=== PATIENT | female | born 1970 | race Caucasian/White ===

== ENCOUNTER 2016-04-11 00:13 | Observation (INO) | payer OTHER ==
[~2016-04-11] VITALS: Ht 188 cm; Wt 125.0 kg
[2016-04-11 00:19] VITALS: BP 169/83; PULSE 90; RESP 18; TEMP 98.1; O2SAT 99
--- NOTE | 2016-04-11 01:03 | RADRPT ---
EXAM DATE/TIME: 04/11/2016 00:29 [facility] COMPARISON: No previous studies available for comparison. INDICATIONS : Left foot pain. MEDICAL HISTORY : None. SURGICAL HISTORY : None. ENCOUNTER: Initial ACUITY: 1 day PAIN SCORE: 7/10 LOCATION: Left ankle. FINDINGS: Two view examination of the left foot demonstrates no soft tissue swelling, dislocation, or fracture. The calcaneus is intact. Bony mineralization is normal. CONCLUSION: Unremarkable limited examination of the left foot. Teo Virgen MD on April 11, 2016 at 1:02 Board Certified Radiologist. This report was verified electronically.
--- NOTE | 2016-04-11 01:03 | RADRPT ---
EXAM DATE/TIME: 04/11/2016 00:24 [facility] COMPARISON: No previous studies available for comparison. INDICATIONS : Left ankle pain. MEDICAL HISTORY : None. SURGICAL HISTORY : None. ENCOUNTER: Initial ACUITY: 1 day PAIN SCORE: 8/10 LOCATION: Left ankle FINDINGS: There is a spiral fracture of the distal left fibula extending from the distal tibiofibular joint and about 10 cm of the fibula with roughly 1/2 shaft width posterior displacement of the distal fragment . The distal tibia is intact however there is widening of the medial ankle mortise potentially indica tive of ligamentous disruption. The hindfoot is grossly intact. CONCLUSION: Spiral fracture of the distal fibula. Medial mortise widening Teo Virgen MD on April 11, 2016 at 0:59 Board Certified Radiologist. This report was verified electronically.
--- NOTE | 2016-04-11 01:14 | PD ---
HPI Chief Complaint: Injury Time Seen by Provider: 01:01 Travel History International Travel<30 days: No Contact w/Intl Traveler<30days: No Traveled to known affect area: No History of Present Illness HPI 45-year-old female presents to the ER today because she states that she fell in the shower, has pain in her left ankle. She denies any other issues or injuries. She denies any head injury or loss consciousness. Modifying Factors: None Associated Signs & Symptoms: Fall, left ankle injury Risk Factors: None PFSH Past Medical History Medical History: Denies Significant Hx Tetanus Vaccination: > 5 Years Influenza Vaccination: No ?: Not LMP: 2 WEEKS AGO Past Surgical History Neurologic Surgery: Yes (C2 C3 REPAIR) Social History Alcohol Use: No Tobacco Use: No Substance Use: No Allergies-Medications (Allergen,Severity, Reaction): Coded Allergies: Codeine (Verified Allergy, Unknown, 04/11/16) Review of Systems Except as stated in HPI: all other systems reviewed are Neg Physical Exam Narrative GENERAL: Well-nourished, well-developed middle age white female patient in no acute distress. SKIN: Warm and dry. HEAD: Normocephalic. EYES: No scleral icterus. No injection or drainage. NECK: Supple, trachea midline. CARDIOVASCULAR: Regular rate and rhythm without murmurs, gallops, or rubs. RESPIRATORY: Breath sounds equal bilaterally. No accessory muscle use. GASTROINTESTINAL: Abdomen soft, non-tender, nondistended. MUSCULOSKELETAL: No cyanosis, or edema. BACK: Nontender without obvious deformity. No CVA tenderness. Left ankle: There is notable edema and tenderness to palpation of the left lateral malleolar area. No knee tenderness. Neurovascularly intact. Data Data Last Documented VS Vital Signs Date Time Temp Pulse Resp B/P Pulse Ox O2 Delivery O2 Flow Rate FiO2 04/11/16 00:19 98.1 90 18 169/83 99 Orders Ankle, Complete ([id number]) (04/11/16 00:25) Foot, Limited (2vws) (04/11/16 00:25) Splint Or Brace Apply/Monitor (04/11/16 01:08) Consult Orthopedic (04/11/16 ) Complete Blood Count With Diff (04/11/16 01:31) Basic Metabolic Panel (Bmp) (04/11/16 01:31) Fiberglass Short Leg Splint Ad (04/11/16 ) Fiberglass Sugartong Sp Ad Sl (04/11/16 ) Admit Order (Ed Use Only) (04/11/16 02:31) Labs Laboratory Tests Test 04/11/16 01:35 White Blood Count 18.7 TH/MM3 Red Blood Count 4.45 MIL/MM3 Hemoglobin 13.2 GM/DL Hematocrit 37.9 % Mean Corpuscular Volume 85.2 FL Mean Corpuscular Hemoglobin 29.7 PG Mean Corpuscular Hemoglobin 34.8 % Concent Red Cell Distribution Width 12.8 % Platelet Count 270 TH/MM3 Mean Platelet Volume 8.5 FL Neutrophils (%) (Auto) 82.9 % Lymphocytes (%) (Auto) 10.2 % Monocytes (%) (Auto) 6.0 % Eosinophils (%) (Auto) 0.6 % Basophils (%) (Auto) 0.3 % Neutrophils # (Auto) 15.6 TH/MM3 Lymphocytes # (Auto) 1.9 TH/MM3 Monocytes # (Auto) 1.1 TH/MM3 Eosinophils # (Auto) 0.1 TH/MM3 Basophils # (Auto) 0.1 TH/MM3 CBC Comment DIFF FINAL Differential Comment Sodium Level 138 MEQ/L Potassium Level 4.0 MEQ/L Chloride Level 104 MEQ/L Carbon Dioxide Level 25.0 MEQ/L Anion Gap 9 MEQ/L Blood Urea Nitrogen 12 MG/DL Creatinine 0.84 MG/DL Estimat Glomerular Filtration 74 ML/MIN Rate Random Glucose 130 MG/DL Calcium Level 8.8 MG/DL MDM Medical Decision Making Medical Screen Exam Complete: Yes Emergency Medical Condition: Yes Medical Record Reviewed: Yes Interpretation(s) Last 24 hours Impressions Foot X-Ray 04/11/165 Signed Impressions: Service Date/Time: Monday, April 11, 2016 00:29 - CONCLUSION: Unremarkable limited examination of the left foot. Teo Viregn MD Ankle X-Ray 04/11/16 0025 Signed Impressions: Service Date/Time: Monday, April 11, 2016 00:24 - CONCLUSION: Spiral fracture of the distal fibula. Medial mortise widening Teo Virgen MD Differential Diagnosis Left ankle injuryfractures versus sprain Narrative Course X-ray shows obvious left distal fibular fracture with a widened ankle mortise. Case was discussed with Dr. Perkins who would like the patient to be admitted for surgery with Dr. Isabel. I have talked to Dr. bill regarding the admission and he states that considering the patient is a fairly uncomplicated patient with no history of past medical issues, he would suggest admission to orthopedic service for this case instead, he states that uncomplicated cases such as these usually admitted to orthopedics. I have attempted to call Dr. Perkins again several times but wasn't successful. At this point, case is admitted to orthopedic service. Diagnosis Primary Impression: Closed fibular fracture Admitting Information Admitting Physician Requests: Admit Jenniffer Geiger MD Apr 11, 2016 01:14
[2016-04-11 01:51] LABS: AUTOMATED NEUTROPHIL # 15.6 TH/MM3 (1.8-7.7); BASOPHIL # 0.1 TH/MM3 (0-0.2); BASOPHIL % 0.3 % (0.0-2.0); EOSINOPHIL # 0.1 TH/MM3 (0-0.4); EOSINOPHIL % 0.6 % (0.0-4.0); HEMATOCRIT 37.9 % (35.0-46.0); HEMO FLAGS DIFF FINAL; LYMPH % 10.2 % (9.0-44.0); LYMPHOCYTE # 1.9 TH/MM3 (1.0-4.8); MEAN CELL VOLUME 85.2 FL (80.0-100.0); MEAN CORPUSCULAR HEMOGLOBIN 29.7 PG (27.0-34.0); MEAN CORPUSCULAR HGB CONC 34.8 % (32.0-36.0); NEUT % 82.9 % (16.0-70.0); PLATELET COUNT 270 TH/MM3 (150-450); RED BLOOD COUNT 4.45 MIL/MM3 (4.00-5.30); RED CELL DISTRIBUTION WIDTH 12.8 % (11.6-17.2); WHITE BLOOD COUNT 18.7 TH/MM3 (4.0-11.0)
[2016-04-11 03:00] VITALS: BP_SYST 116; BP_SYST 134; BP_DIAS 68; PULSE 77; PULSE 87; RESP 16; O2SAT 96; O2SAT 99
[2016-04-11] MEDS ORDERED: ONDANSETRON HCL 4 MG/2 ML VIAL IV PUSH ONE ×2 (03:30→12:00)
[2016-04-11] MEDS ORDERED: MORPHINE SULFATE 4 MG/ML INJ IV PUSH ONE ×2 (03:30→07:45)
[2016-04-11 07:48] VITALS: BP 136/70; PULSE 92; RESP 16; TEMP 98.7; O2SAT 96
[2016-04-11] MEDS ORDERED: MIDAZOLAM HCL 2 MG/2 ML VIAL ONE (09:09)
[2016-04-11] MEDS ORDERED: ACETAMINOPHEN 1000 MG/100 ML VIAL IV ONE (09:09)
[2016-04-11] MEDS ORDERED: METOCLOPRAMIDE HCL 10 MG/2 ML VIAL ONE (09:10)
[2016-04-11] MEDS ORDERED: fentaNYL CITRATE 250 MCG/5 ML AMP ONE (09:10)
[2016-04-11] MEDS ORDERED: DEXAMETHASONE SOD PHOS 4 MG/ML VIAL ONE (09:10)
--- NOTE | 2016-04-11 09:29 | MH ---
cc: ELIZABETH CARTWRIGHT DATE OF ADMISSION: 04/11/2016 REASON FOR ADMISSION Left ankle fracture. HISTORY OF PRESENT ILLNESS Crys is a 45-year-old female who was in the shower. The floor was wet. She slipped and fell. She twisted her ankle. She had immediate left ankle pain. She was unable to stand or ambulate. She presented to the emergency room where x-rays revealed a left ankle fracture. She is currently awake and alert in the emergency department. Her only complaint is her left ankle. She denies any dizziness, syncope or loss of consciousness. Pain is worse with any movement or weightbearing of the ankle. PAST MEDICAL HISTORY ILLNESSES Cervical spine surgery. Degenerative disc disease. ALLERGIES CODEINE. MEDICATIONS Please see EMR for complete list of inpatient medications. This was reviewed. SOCIAL HISTORY The patient denies alcohol, tobacco or drug use. FAMILY HISTORY Family history is noncontributory. REVIEW OF SYSTEMS The patient denies headache, visual changes, neck pain, chest pain, shortness of breath, abdominal pain, nausea, vomiting, recent weight loss or numbness or tingling of the extremities. She complains of left ankle pain. She has chronic neck and back pain. She sees Dr. Andres Monahan regarding her spine. PHYSICAL EXAMINATION GENERAL: The patient is a well-developed, well-nourished 45-year-old female in no acute distress. She is awake and alert. She is alert and oriented x3. VITAL SIGNS: Temperature 98.1, pulse 87, respirations 16, blood pressure 116/60, O2 sats 99% on room air. HEAD: The patient is normocephalic. Pupils are equal. NECK: Soft, nontender. Trachea is midline. ABDOMEN: Soft, nontender, nondistended. EXTREMITIES: Examination of bilateral upper extremities reveals no significant pain with shoulder, elbow or wrist motion. She has intact sensation in radial, ulnar, median nerve distribution bilaterally. She has +5 employment trainer strength bilaterally. Radial pulses are palpable. Examination of right leg reveals no pain with hip, knee or ankle motion. Sensation is intact. Skin is intact. The dorsalis pedis pulse is palpable. Examination of left leg reveals no pain with hip or knee motion. She is diffusely tender around the ankle. There is mild swelling present. Skin is intact. Sensation is intact in the left foot. X-RAYS X-rays of left ankle were reviewed. X-rays revealed displaced left fibula fracture. There is widening of the medial clear space. IMPRESSION Displaced left ankle fracture. PLAN Treatment options were discussed with the patient. At this point I would recommend open reduction, internal fixation left ankle. Risks of surgery include bleeding, infection, injuries to arteries, nerves and blood vessels, ankle stiffness, loss of motion as well as medical complications associated with anesthesia. All questions were answered. I will plan on surgery today. All questions were answered. A mid-level provider in my office, nurse practitioner or PA, may see this patient on a follow-up basis and continue to implement the objective of this plan including: Starting or adjusting medications, injections of muscle, tendon, bursa or joints, cast application, orthotic or brace application, physical therapy, further radiographic studies including x-ray, MRI, CT, ultrasounds or bone scan, vascular studies, neurologic studies, or other specialist consultations, and proceeding with surgical management as appropriate. MD JAE Alonso/CHRISTIANO /7:10 AM /9:11 AM BAL[facility]ER
[2016-04-11] MEDS ORDERED: BUPIVACAINE/EPINEPHRINE 0.25% PF 30 ML VIAL ONE ×2 (09:33→14:08)
[2016-04-11] MEDS ORDERED: GENTAMICIN SULFATE 80 MG/2 ML VIAL IRRIGATION ONE (09:47)
[2016-04-11] MEDS ORDERED: HYDR-3288 PO (10:13)
[2016-04-11] MEDS ORDERED: WALKER/ADULT/FO1 MIS (10:15)
--- NOTE | 2016-04-11 10:35 | PD.OP ---
cc: Josh Isabel MD Operative Report Date of Surgery: Apr 11, 2016 Preoperative Diagnosis: Displaced left ankle fracture Postoperative Diagnosis: Displaced left fibular fracture, syndesmosis disruption Procedure: Open reduction internal fixation left distal fibula, open reduction internal fixation left ankle syndesmosis Surgeon: Josh Isabel Queen Producer(s): YAN Jenkins PA-C The surgical procedure was assisted by my physician chef's assistant. My P.A. presence was necessary throughout this case for the manipulation and positioning of the surgical extremity. My P.A. was assisting me throughout the duration of this procedure. The skill set of a physician chef's assistant was medically necessary to complete this procedure. During the surgical case the instructor adjunct surgical technician was working at the back table and the physician chef's assistant was directly assisting me. Operation and Findings: Patient was seen and evaluated preoperatively and found to have a displaced ankle fracture. Informed consent was obtained after a detailed discussion of risk and benefits of surgery. The operative site was marked. Patient was brought to the OR, placed on the OR table, and given IV sedation and general endotracheal anesthesia. IV antibiotics were given preoperatively. A timeout procedure was performed. The left leg was prepped with alcohol followed by Hibiclens and draped in the usual sterile fashion. Attention was turned towards the distal fibula. A 6-inch incision was made over the distal fibula. The fracture extended up towards the fibular shaft. The subcutaneous tissue was dissected with Bovie. Patient was noted to have a large superficial peroneal nerve. This was protected throughout the procedure. The fracture site was visualized. The fracture site was cleaned with curets. The fracture was now reduced. The fracture keyed into anatomic alignment. K- wires were used to h old provisional fixation. Multiple 2.7 cortical lag screws were used to compress fracture. A Synthes metaphyseal plate was selected. The plate was provisionally held to bone with K-wires. 3.5 cortical screws were used to compress the plate to bone. Multiple cortical screws were placed above and below the fracture. Next, attention was turned to the syndesmosis. The syndesmosis was stressed. There was widening of the syndesmosis with external rotation of the ankle. The syndesmosis was now held in a reduced position with the ankle in neutral position. Two Synthes 4.0 cortical screws were now placed through the fibula plate into the tibia. Fluoroscopy confirmed appropriate screw placement with well-aligned syndesmosis. Incisions were thoroughly irrigated. The subcutaneous tissue was closed with 3-0 PDS and the skin was closed with 3-0 nylon. Sterile dressings were applied. The patient was transferred to Recovery in stable condition. Josh Isabel MD Apr 11, 2016 10:35
[2016-04-11] MEDS ORDERED: Post-op Orders (for Pharmacy) MISC XX ONE (10:45)
[2016-04-11] MEDS ORDERED: ONDANSETRON HCL 4 MG/2 ML VIAL IVP PRN (10:45)
[2016-04-11] MEDS ORDERED: ceFAZolin 2 GM PREMIX 50 ML IV SCH (10:45)
[2016-04-11] MEDS ORDERED: MORPHINE SULFATE 4 MG/ML INJ IV PUSH PRN (10:45)
[2016-04-11] MEDS ORDERED: ACETAMINOPHEN/HYDROcodone 325 MG/7.5 MG TAB PO PRN (10:45)
--- NOTE | 2016-04-11 10:48 | RADRPT ---
EXAM DATE/TIME: 04/11/2016 10:16 [facility] COMPARISON: No previous studies available for comparison. INDICATIONS: Post-op ORIF left ankle fracture. MEDICAL HISTORY: None. SURGICAL HISTORY: None. ENCOUNTER: Initial ACUITY: 1 day PAIN SCORE: Non-responsive. LOCATION: Left ankle. FINDINGS: Plate with screws is seen bridging the fracture of the fibula. Alignment is anatomic in the AP and l ateral projection. CONCLUSION: Anatomic alignment. Arslan Kat MD FACR on April 11, 2016 at 10:42 Board Certified Radiologist. This report was verified electronically.
[2016-04-11] MEDS ORDERED: DO NOT ADM ANY ANTICOAGULANT DRUGS XX PRN (11:00)
[2016-04-11] MEDS ORDERED: *MEPERIDINE 25 MG INJ VIAL PERIprocedural Use ONLY ONE (11:15)
[2016-04-11] MEDS ORDERED: *morphine SULFATE 8 MG/ML PERIprocedure ONLY ONE ×3 (11:24→12:11)
[2016-04-11] MEDS ORDERED: PROPOFOL 200 MG/20 ML AMP IV ONE (12:00)
[2016-04-11] MEDS ORDERED: NORMOSOL R INJ 1,000 ML IV ONE (12:00)
[2016-04-11] MEDS: ACETAMINOPHEN/HYDROcodone 325 MG/7.5 MG TAB PO PRN ×2 (13:45→15:00)
[2016-04-11 13:49] VITALS: BP 153/88; PULSE 83; TEMP 97; O2SAT 96
[2016-04-11 14:45] VITALS: RESP 18
== END 2016-04-11 10:31 | disposition home or self-care (01) ==
LOC: NEPC 00:13 → NEDA 02:32 → HPAC 08:45
PROVIDERS: ADMIT Orthopaedic Surgery Orthopaedic Trauma; ATTEND Orthopaedic Surgery Orthopaedic Trauma
DX: S82.832A Other fracture of upper and lower end of left fibula, initial encounter for closed fracture (principal); S93.432A Sprain of tibiofibular ligament of left ankle, initial encounter; W01.0XXA Fall on same level from slipping, tripping and stumbling without subsequent striking against object, initial encounter
CPT/HCPCS: 01480; 27792; 27829; 29515; 73600; 73610; 73620; 76000; 80048; 85025; 97163; 99284; C1713; G0378; G8987; G8988; J0131; J1100; J1580; J2175; J2250; J2270; J2405; J2765; J3010

== ENCOUNTER 2017-02-22 21:54 | Observation (INO) | payer OTHER ==
[~2017-02-22] VITALS: Ht 189.2 cm; Wt 149.1 kg
[~2017-02-22 21:54] MED LIST: HYDR-3288 PO; WALKER/ADULT/FO1 MIS
[2017-02-22 21:59] VITALS: BP 140/101; PULSE 76; RESP 20; TEMP 97.7; O2SAT 100
[2017-02-22 22:07] VITALS: BP 140/101; PULSE 76; O2SAT 100
[2017-02-22] MEDS ORDERED: SODIUM CHLOR 0.9% 1000 ML INJ 1,000 ML IV ONE (22:15)
[2017-02-22] MEDS ORDERED: ASPIRIN 81 MG CHEW TAB PO ONE (22:15)
[2017-02-22] MEDS ORDERED: SODIUM CHLORIDE 0.9% FLUSH 10 ML FLUSH IVF PRN (22:15)
--- NOTE | 2017-02-22 22:17 | PD ---
HPI Chief Complaint: Respiratory Symptoms Time Seen by Provider: 22:07 Travel History International Travel<30 days: No Contact w/Intl Traveler<30days: No Traveled to known affect area: No History of Present Illness HPI Patient is a 46-year-old female who presents to emergency room with complaints of shortness of breath. Patient reports that last night around 2 AM, she woke up from her sleep with shortness of breath and chest pain. She reports that chest pain is substernal in nature and feels a "pressure to my chest". Patient reports that she felt as if she cannot catch her breath, reports mild relief while sitting up. Patient reports that symptoms have been intermittent all day , patient reports that she has not been able to take a deep breath, reports that she has been having intermittent bouts of "pressure to my chest" last for a few minutes and then resolves on its own. Patient with no history of hypertension, diabetes, coronary artery disease, no family history of early heart disease. Patient also denies history of PE or DVT. Patient is a nonsmoker, reports that she has never had the symptoms in the past. Patient reports that she is not on any control pills, denies any recent travels or trips. Overall, she is healthy does not take any medications. PFSH Past Medical History Medical History: Denies Significant Hx Hx Anticoagulant Therapy: No ?: Not LMP: A YEAR AGO Past Surgical History Neurologic Surgery: Yes (C2 C3 REPAIR) Family History Family History: Negative Social History Alcohol Use: No Tobacco Use: No Substance Use: No Allergies-Medications (Allergen,Severity, Reaction): Coded Allergies: codeine (Unverified Allergy, Unknown, 02/22/17) Reported Meds & Prescriptions Reported Meds & Active Scripts Active Walker/Adult/Folding (Device) 1 Mis Mis 1 Ea .ROUTE DIRECTED [place] (Hydrocodone-Acetaminophen) 7.5-325 mg Tab 1 Tab PO Q4H PRN Review of Systems General / Constitutional: No: Fever Eyes: No: Visual changes HENT: No: Headaches Cardiovascular: Positive: Chest Pain or Discomfort, No: Palpitations, Irregular Rhythm, Tachycardia, Diaphoresis Respiratory: Positive: Shortness of Breath, No: Wheezing Gastrointestinal: No: Abdominal Pain Genitourinary: No: Dysuria Musculoskeletal: No: Pain Skin: No Rash Neurologic: No: Weakness Psychiatric: No: Depression Endocrine: No: Polydipsia Hematologic/Lymphatic: No: Easy Bruising Physical Exam Narrative GENERAL: Moderate distress SKIN: Focused skin assessment warm/dry. HEAD: Atraumatic. Normocephalic. EYES: Pupils equal and round. No scleral icterus. No injection or drainage. ENT: No nasal bleeding or discharge. Mucous membranes pink and moist. NECK: Trachea midline. No JVD. CARDIOVASCULAR: Regular rate and rhythm. No murmur appreciated. RESPIRATORY: No accessory muscle use. Clear to auscultation. Breath sounds equal bilaterally. GASTROINTESTINAL: Abdomen soft, non-tender, nondistended. Hepatic and splenic margins not palpable. MUSCULOSKELETAL: No obvious deformities. No clubbing. No cyanosis. No edema. NEUROLOGICAL: Awake and alert. No obvious cranial nerve deficits. Motor grossly within normal limits. Normal speech. PSYCHIATRIC: Appropriate mood and affect; insight and judgment normal. Data Data Last Documented VS Vital Signs Date Time Temp Pulse Resp B/P (MAP) Pulse Ox O2 Delivery O2 Flow Rate FiO2 02/22/17 23:44 76 16 151/80 (103) 98 Room Air 02/22/17 21:59 97.7 Orders Orders Electrocardiogram (02/22/17 ) B-Type Natriuretic Peptide (02/22/17 22:11) Ckmb (Isoenzyme) Profile (02/22/17 22:11) Complete Blood Count With Diff (02/22/17 22:11) Comprehensive Metabolic Panel (02/22/17 22:11) D-Dimer (02/22/17 22:11) Magnesium (Mg) (02/22/17 22:11) Prothrombin Time / Inr (Pt) (02/22/17 22:11) Act Partial Throm Time (Ptt) (02/22/17 22:11) Troponin I (02/22/17 22:11) Chest, Single Ap (02/22/17 22:11) Ecg Monitoring (02/22/17 22:11) Iv Access Insert/Monitor (02/22/17 22:11) Oximetry (02/22/17 22:11) Aspirin Chew (Aspirin Chew) (02/22/17 22:15) Sodium Chloride 0.9% Flush (Ns Flush) (02/22/17 22:15) Ct Pulmonary Angiogram (02/22/17 22:11) Sodium Chlor 0.9% 1000 Ml Inj (Ns 1000 M (02/22/17 22:15) Nitroglycerin Sl (Nitrostat Sl) (02/22/17 23:30) Iohexol 350 Inj (Omnipaque 350 Inj) (02/22/17 23:28) Acetaminophen (Tylenol) (02/22/17 23:45) Labs Laboratory Tests Test 02/22/17 22:30 White Blood Count 13.4 TH/MM3 Red Blood Count 4.60 MIL/MM3 Hemoglobin 13.6 GM/DL Hematocrit 39.2 % Mean Corpuscular Volume 85.2 FL Mean Corpuscular Hemoglobin 29.5 PG Mean Corpuscular Hemoglobin Concent 34.6 % Red Cell Distribution Width 11.7 % Platelet Count 295 TH/MM3 Mean Platelet Volume 8.1 FL Neutrophils (%) (Auto) 70.0 % Lymphocytes (%) (Auto) 22.8 % Monocytes (%) (Auto) 5.8 % Eosinophils (%) (Auto) 1.1 % Basophils (%) (Auto) 0.3 % Neutrophils # (Auto) 9.5 TH/MM3 Lymphocytes # (Auto) 3.0 TH/MM3 Monocytes # (Auto) 0.8 TH/MM3 Eosinophils # (Auto) 0.1 TH/MM3 Basophils # (Auto) 0.0 TH/MM3 CBC Comment DIFF FINAL Differential Comment Prothrombin Time 9.8 SEC Prothromb Time International Ratio 0.9 RATIO Activated Partial Thromboplast Time 29.2 SEC D-Dimer Quantitative (PE/DVT) 0.48 MG/L FEU Blood Urea Nitrogen 12 MG/DL Creatinine 0.86 MG/DL Random Glucose 96 MG/DL Total Protein 7.6 GM/DL Albumin 3.5 GM/DL Calcium Level 8.7 MG/DL Magnesium Level 2.0 MG/DL Alkaline Phosphatase 105 U/L Aspartate Amino Transf (AST/SGOT) 18 U/L Alanine Aminotransferase (ALT/SGPT) 28 U/L Total Bilirubin 0.2 MG/DL Sodium Level 138 MEQ/L Potassium Level 3.6 MEQ/L Chloride Level 102 MEQ/L Carbon Dioxide Level 28.4 MEQ/L Anion Gap 8 MEQ/L Estimat Glomerular Filtration Rate 71 ML/MIN Total Creatine Kinase 59 U/L Troponin I LESS THAN 0.02 NG/ML B-Type Natriuretic Peptide 10 PG/ML MDM Medical Decision Making Medical Screen Exam Complete: Yes Emergency Medical Condition: Yes Medical Record Reviewed: Yes Interpretation(s) Vital Signs Date Time Temp Pulse Resp B/P (MAP) Pulse Ox O2 Delivery O2 Flow Rate FiO2 02/22/17 22:07 78 100 Room Air 02/22/17 21:59 97.7 76 20 140/101 (114) 100 Differential Diagnosis ACS, arrhythmia, PE, pneumothorax, electrolyte abnormality Narrative Course 46-year-old female who presents to emergency with complaints of chest pain and shortness of breath which began around 2 AM in the morning and has been persistent and intermittent all day. During the course of the patients emergency department visit, the patients history, examination, and differential diagnosis were reviewed with the patient. The patient was placed on a cardiac rehab nurse with oximetry and frequent blood pressure monitoring. The patient had a 20-gauge IV access obtained and blood work sent for analysis. The patient was initially provided aspirin as well as sublingual nitroglycerin. The patients laboratory studies were reviewed and remarkable for: Laboratory Tests Test 02/22/17 22:30 White Blood Count 13.4 TH/MM3 (4.0-11.0) Red Blood Count 4.60 MIL/MM3 (4.00-5.30) Hemoglobin 13.6 GM/DL (11.6-15.3) Hematocrit 39.2 % (35.0-46.0) Mean Corpuscular Volume 85.2 FL (80.0-100.0) Mean Corpuscular Hemoglobin 29.5 PG (27.0-34.0) Mean Corpuscular Hemoglobin Concent 34.6 % (32.0-36.0) Red Cell Distribution Width 11.7 % (11.6-17.2) Platelet Count 295 TH/MM3 (150-450) Mean Platelet Volume 8.1 FL (7.0-11.0) Neutrophils (%) (Auto) 70.0 % (16.0-70.0) Lymphocytes (%) (Auto) 22.8 % (9.0-44.0) Monocytes (%) (Auto) 5.8 % (0.0-8.0) Eosinophils (%) (Auto) 1.1 % (0.0-4.0) Basophils (%) (Auto) 0.3 % (0.0-2.0) Neutrophils # (Auto) 9.5 TH/MM3 (1.8-7.7) Lymphocytes # (Auto) 3.0 TH/MM3 (1.0-4.8) Monocytes # (Auto) 0.8 TH/MM3 (0-0.9) Eosinophils # (Auto) 0.1 TH/MM3 (0-0.4) Basophils # (Auto) 0.0 TH/MM3 (0-0.2) CBC Comment DIFF FINAL Differential Comment Prothrombin Time 9.8 SEC (9.8-11.6) Prothromb Time International Ratio 0.9 RATIO Activated Partial Thromboplast Time 29.2 SEC (24.3-30.1) D-Dimer Quantitative (PE/DVT) 0.48 MG/L FEU (0.00-0.50) Blood Urea Nitrogen 12 MG/DL (7-18) Creatinine 0.86 MG/DL (0.50-1.00) Random Glucose 96 MG/DL (74-106) Total Protein 7.6 GM/DL (6.4-8.2) Albumin 3.5 GM/DL (3.4-5.0) Calcium Level 8.7 MG/DL (8.5-10.1) Magnesium Level 2.0 MG/DL (1.5-2.5) Alkaline Phosphatase 105 U/L (45-117) Aspartate Amino Transf (AST/SGOT) 18 U/L (15-37) Alanine Aminotransferase (ALT/SGPT) 28 U/L (10-53) Total Bilirubin 0.2 MG/DL (0.2-1.0) Sodium Level 138 MEQ/L (136-145) Potassium Level 3.6 MEQ/L (3.5-5.1) Chloride Level 102 MEQ/L (98-107) Carbon Dioxide Level 28.4 MEQ/L (21.0-32.0) Anion Gap 8 MEQ/L (5-15) Estimat Glomerular Filtration Rate 71 ML/MIN (>89) Total Creatine Kinase 59 U/L (26-192) Troponin I LESS THAN 0.02 NG/ML B-Type Natriuretic Peptide 10 PG/ML (0-100) Radiology studies were reviewed and remarkable for: Last Impressions Chest X-Ray 02/22/17 8172 Signed Impressions: Service Date/Time: Wednesday, February 22, 2017 22:22 - CONCLUSION: No acute cardiac pulmonary process. Nestor Lacey MD First troponin is negative, CTA is negative for PE. Plan to obs in chest pain unit for chest pain workup. Patient does have relief of chest pain after 1 sl nitro. case reviewed with Dr. Coronado who accepts pt to service Diagnosis Primary Impression: Chest pain Qualified Codes: R07.9 - Chest pain, unspecified Admitting Information Admitting Physician Requests: Maggie Lorenzo DO Feb 22, 2017 22:17
[2017-02-22 22:27] VITALS: RESP 18; O2SAT 99
[2017-02-22 22:39] VITALS: BP 136/90
[2017-02-22 22:44] LABS: AUTOMATED NEUTROPHIL # 9.5 TH/MM3 (1.8-7.7); BASOPHIL % 0.3 % (0.0-2.0); EOSINOPHIL # 0.1 TH/MM3 (0-0.4); EOSINOPHIL % 1.1 % (0.0-4.0); HEMATOCRIT 39.2 % (35.0-46.0); HEMO FLAGS DIFF FINAL; LYMPH % 22.8 % (9.0-44.0); MEAN CELL VOLUME 85.2 FL (80.0-100.0); MEAN CORPUSCULAR HEMOGLOBIN 29.5 PG (27.0-34.0); MEAN CORPUSCULAR HGB CONC 34.6 % (32.0-36.0); MONO % 5.8 % (0.0-8.0); PLATELET COUNT 295 TH/MM3 (150-450); RED CELL DISTRIBUTION WIDTH 11.7 % (11.6-17.2); WHITE BLOOD COUNT 13.4 TH/MM3 (4.0-11.0)
[2017-02-22 22:51] LABS: CHLORIDE 102 MEQ/L (98-107); POTASSIUM 3.6 MEQ/L (3.5-5.1); SODIUM (NA) 138 MEQ/L (136-145)
--- NOTE | 2017-02-22 22:51 | RADRPT ---
EXAM DATE/TIME: 02/22/2017 22:22 [facility] COMPARISON: No previous studies available for comparison. INDICATIONS : Chest pain and shortness of breath. MEDICAL HISTORY : None. SURGICAL HISTORY : None. ENCOUNTER: Initial ACUITY: 1 day PAIN SCORE: 5/10 LOCATION: Bilateral chest FINDINGS: A single view of the chest demonstrates the lungs to be symmetrically aerated without evidence of mas s, infiltrate or effusion. The cardiomediastinal contours are unremarkable. Osseous structures are intact. CONCLUSION: No acute cardiac pulmonary process. Nestor Lacey MD on February 22, 2017 at 22:49 Board Certified Radiologist. This report was verified electronically.
[2017-02-22 22:54] LABS: ANION GAP 8 MEQ/L (5-15); BICARBONATE 28.4 MEQ/L (21.0-32.0)
[2017-02-22 22:55] LABS: BLOOD UREA NITROGEN 12 MG/DL (7-18)
[2017-02-22 22:57] LABS: ALT (GPT) 28 U/L (10-53); AST (GOT) 18 U/L (15-37)
[2017-02-22 22:58] LABS: GLOMERULAR FILTRATION RATE 71 ML/MIN (>89)
[2017-02-22 22:59] LABS: APTT (PATIENT) 29.2 SEC (24.3-30.1); INTERNATIONAL NORMALIZED RATIO 0.9 RATIO; PROTHROMBIN TIME - PATIENT 9.8 SEC (9.8-11.6); TOTAL BILIRUBIN ADULT 0.2 MG/DL (0.2-1.0)
[2017-02-22 23:00] LABS: ALKALINE PHOSPHATASE 105 U/L (45-117)
[2017-02-22 23:04] LABS: CREATINE KINASE 59 U/L (26-192)
[2017-02-22] MEDS ORDERED: IOHEXOL 350 MG/ML 10 ML VIAL (for RAD DIAG) IVCONTRAST ONE (23:28)
[2017-02-22 23:36] VITALS: BP 151/83; PULSE 71; O2SAT 100
--- NOTE | 2017-02-22 23:37 | RADRPT ---
EXAM DATE/TIME: 02/22/2017 23:15 [place] COMPARISON: No previous studies available for comparison. INDICATIONS : Shortness of breath with previous chest pains. IV CONTRAST: 70 cc Omnipaque 350 (iohexol) IV RADIATION DOSE: 20.64 CTDIvol (mGy) MEDICAL HISTORY : None SURGICAL HISTORY : None. ENCOUNTER: Initial ACUITY: 1 day PAIN SCALE: 0/10 LOCATION: chest TECHNIQUE: Volumetric scanning of the chest was performed using a pulmonary embolism protocol MIP images were re constructed. Using automated exposure control and adjustment of the mA and/or kV according to patien t size, radiation dose was kept as low as reasonably achievable to obtain optimal diagnostic quality images. DICOM format image data is available electronically for review and comparison. Follow-up recommendations for detected pulmonary nodules are based at a minimum on nodule size and pa tient risk factors according to Fleischner Society Guidelines. FINDINGS: PULMONARY ARTERIES: No filling defects are seen in the pulmonary arteries through the segmental level. LUNGS: There is no consolidation or pneumothorax . No concerning pulmonary nodule is visualized. PLEURAE: There is no pleural thickening or pleural effusion. MEDIASTINUM: There is good visualization of the great vessels of the middle mediastinum. No evidence of mediastin al or hilar adenopathy/mass. MUSCULOSKELETAL: Within normal limits for patient age. MISCELLANEOUS: The visualized upper abdominal organs demonstrate no acute abnormality. CONCLUSION: No pulmonary embolus. Teo Calixto MD on February 22, 2017 at 23:34 Board Certified Radiologist. This report was verified electronically.
[2017-02-22] MEDS: NITROGLYCERIN 0.4 MG SL 25 TABS/BTL SL SCH ×2 (23:39→23:47)
[2017-02-22 23:44] VITALS: BP 151/80; PULSE 76; RESP 16; O2SAT 98
[2017-02-22] MEDS ORDERED: ACETAMINOPHEN 325 MG TAB PO ONE (23:45)
[2017-02-23] MEDS ORDERED: SODIUM CHLORIDE 0.9% FLUSH 10 ML FLUSH IV FLUSH PRN
[2017-02-23 00:26] VITALS: O2SAT 96
[2017-02-23] MEDS: NITROGLYCERIN 0.4 MG SL 25 TABS/BTL SL SCH (00:30)
[2017-02-23 00:33] VITALS: BP 122/72; PULSE 74; RESP 16; O2SAT 98
[2017-02-23 01:00] VITALS: BP 125/84; PULSE 70; RESP 20; TEMP 96.7; O2SAT 96
[2017-02-23 02:42] LABS: CREATINE KINASE 56 U/L (26-192)
[2017-02-23 04:00] VITALS: BP 124/71; PULSE 83; RESP 20; TEMP 98.7; O2SAT 98
[2017-02-23 06:56] LABS: CREATINE KINASE 49 U/L (26-192)
--- NOTE | 2017-02-23 07:51 | HHI.HP ---
[facility] Ravinder Gordon MD Admission Diagnosis Chest pain Diagnoses: (1) Chest pain Diagnosis: Principal Chief Complaint: Chest pain Travel History International Travel<30 Days: No Contact w/Intl Traveler <30 Da: No Traveled to Known Affected Are: No History of Present Illness Ms. Leigh is a 46-year-old female patient with no known medical history who presented to the ED with complaints of chest pain. Patient states that the pain occurred around 2 am yesterday morning, waking her up out of her sleep. She states that the chest pain was located in her mid sternal chest, and "felt like an elephant on her chest", was a 10/10 on pain scale, lasted a few minutes and subsided once patient sat up in bed and walked around. Denies any known aggravating factors for the pain. Denies ever having this type of chest pain in the past. Denies any associated nausea, vomiting, diaphoresis or SOB with the pain. Denies any current tobacco use. Denies any significant family medical history of cardiovascular disease. Does state she is going through menopause at this time. Denies any recent illness including fever, chills, headache, cough, shortness of breath, abdominal pain, nausea, vomiting, diarrhea or dysuria. Review of Systems Constitutional: DENIES: Fever, Chills Respiratory: DENIES: Cough, Shortness of breath Cardiovascular: COMPLAINS OF: Chest pain Gastrointestinal: DENIES: Abdominal pain, Diarrhea, Nausea, Vomiting Psychiatric: DENIES: Anxiety Except as stated in HPI: all other systems reviewed are Neg Past Family Social History Past Medical History Chronic leg pain Past Surgical History C2-C3 repair Left ankle orthopedic repair Reported Medications OTC Tylenol and Advil for pain relief Allergies: Coded Allergies: codeine (Unverified Allergy, Unknown, 02/22/17) Active Ordered Medications Current Medications Medications (Trade) Dose Ordered Sig/Andi Route Start Time Stop Time Status Last Admin (NS Flush) 2 ml UNSCH PRN IV FLUSH 02/23/17 00:00 (NS Flush) 2 ml BID IV FLUSH 02/23/17 09:00 Family History Denies any significant family medical history. Social History Denies any tobacco use. Denies any alcohol use. Denies any illicit drug use. Physical Exam Vital Signs Vital Signs Date Time Temp Pulse Resp B/P (MAP) Pulse Ox O2 Delivery O2 Flow Rate FiO2 02/23/17 04:00 98.7 83 20 124/71 (88) 98 02/23/17 01:00 96.7 70 20 125/84 (98) 96 02/23/17 00:50 02/23/17 00:33 74 16 122/72 (89) 98 Room Air 02/23/17 00:26 96 21 02/22/17 23:44 76 16 151/80 (103) 98 Room Air 02/22/17 23:36 71 151/83 (105) 100 Room Air 02/22/17 22:39 136/90 (105) 02/22/17 22:27 18 99 Room Air 02/22/17 22:07 78 100 Room Air 02/22/17 22:07 76 140/101 (114) 100 02/22/17 21:59 97.7 76 20 140/101 (114) 100 Physical Exam GENERAL: This is a well-nourished, well-developed patient, in no apparent distress. SKIN: No rashes, ecchymoses or lesions. Cool and dry. HEAD: Atraumatic. Normocephalic. No temporal or scalp tenderness. EYES: Pupils equal round and reactive. Extraocular motions intact. No scleral icterus. No injection or drainage. ENT: Nose without bleeding, purulent drainage or septal hematoma. Throat without erythema, tonsillar hypertrophy or exudate. Uvula midline. Airway patent. NECK: Trachea midline. No JVD or lymphadenopathy. Supple, nontender, no meningeal signs. CARDIOVASCULAR: Regular rate and rhythm without murmurs, gallops, or rubs. RESPIRATORY: Clear to auscultation. Breath sounds equal bilaterally. No wheezes , rales, or rhonchi. GASTROINTESTINAL: Abdomen soft, non-tender, nondistended. No hepato-splenomegaly , or palpable masses. No guarding. MUSCULOSKELETAL: Extremities without clubbing, cyanosis, or edema. No joint tenderness, effusion, or edema noted. No calf tenderness. Negative Homans sign bilaterally. NEUROLOGICAL: Awake and alert. Cranial nerves II through XII intact. Motor and sensory grossly within normal limits. Five out of 5 muscle strength in all muscle groups. Normal speech. Laboratory Laboratory Tests Test 02/22/17 22:30 02/23/17 01:55 02/23/17 04:45 White Blood Count 13.4 Red Blood Count 4.60 Hemoglobin 13.6 Hematocrit 39.2 Mean Corpuscular Volume 85.2 Mean Corpuscular Hemoglobin 29.5 Mean Corpuscular Hemoglobin Concent 34.6 Red Cell Distribution Width 11.7 Platelet Count 295 Mean Platelet Volume 8.1 Neutrophils (%) (Auto) 70.0 Lymphocytes (%) (Auto) 22.8 Monocytes (%) (Auto) 5.8 Eosinophils (%) (Auto) 1.1 Basophils (%) (Auto) 0.3 Neutrophils # (Auto) 9.5 Lymphocytes # (Auto) 3.0 Monocytes # (Auto) 0.8 Eosinophils # (Auto) 0.1 Basophils # (Auto) 0.0 CBC Comment DIFF FINAL Differential Comment Prothrombin Time 9.8 Prothromb Time International Ratio 0.9 Activated Partial Thromboplast Time 29.2 D-Dimer Quantitative (PE/DVT) 0.48 Blood Urea Nitrogen 12 Creatinine 0.86 Random Glucose 96 Total Protein 7.6 Albumin 3.5 Calcium Level 8.7 Magnesium Level 2.0 Alkaline Phosphatase 105 Aspartate Amino Transf (AST/SGOT) 18 Alanine Aminotransferase (ALT/SGPT) 28 Total Bilirubin 0.2 Sodium Level 138 Potassium Level 3.6 Chloride Level 102 Carbon Dioxide Level 28.4 Anion Gap 8 Estimat Glomerular Filtration Rate 71 Total Creatine Kinase 59 56 49 Troponin I LESS THAN 0.02 LESS THAN 0.02 LESS THAN 0.02 B-Type Natriuretic Peptide 10 Result Diagram: 02/22/17222902/22/172229 Imaging Last Impressions Chest X-Ray 02/22/172210 Signed Impressions: Service Date/Time: Wednesday, February 22, 2017 22:22 - CONCLUSION: No acute cardiac pulmonary process. Nestor Lacey MD CT Angiography 02/22/172210 Signed Impressions: Service Date/Time: Wednesday, February 22, 2017 23:15 - CONCLUSION: No pulmonary embolus. MD Umesh Jenkins VTE Risk Assessment [place] VTE Risk Assessment: No/Low Risk (score <= 1) Caprini Risk Assessment Model Point Value = 1 Point Value = 2 Point Value = 3 Point Value = 5 Age 41-60 Minor surgery BMI > 25 kg/m2 Swollen legs Varicose veins or History of unexplained or recurrent spontaneous Oral contraceptives or hormone replacement Sepsis (< 1 month) Serious lung disease, including pneumonia (< 1 month) Abnormal pulmonary function Acute myocardial infarction Congestive heart failure (< 1 month) History of inflammatory bowel disease Medical patient at bed rest Age 61-74 Arthroscopic surgery Major open surgery (> 45 min) Laparoscopic surgery (> 45 min) Malignancy Confined to bed (> 72 hours) Immobilizing plaster cast Central venous access Age >= 75 History of VTE Family history of VTE Factor V Leiden Prothrombin [id number] Lupus anticoagulant Anticardiolipin antibodies Elevated serum homocysteine Heparin-induced thrombocytopenia Other congenital or acquired thrombophilia Stroke (< 1 month) Elective arthroplasty Hip, pelvis, or leg fracture Acute spinal cord injury (< 1 month) Prophylaxis Regimen Total Risk Factor Score Risk Level Prophylaxis Regimen 0-1 Low Early ambulation 2 Moderate Order ONE of the following: *Sequential Compression Device (SCD) *Heparin 5000 units SQ BID 3-4 Higher Order ONE of the following medications: *Heparin 5000 units SQ TID *Enoxaparin/Lovenox 40 mg SQ daily (WT < 150 kg, CrCl > 30 mL/min) *Enoxaparin/Lovenox 30 mg SQ daily (WT < 150 kg, CrCl > 10-29 mL/min) *Enoxaparin/Lovenox 30 mg SQ BID (WT < 150 kg, CrCl > 30 mL/min) AND/OR *Sequential Compression Device (SCD) 5 or more Highest Order ONE of the following medications: *Heparin 5000 units SQ TID (Preferred with Epidurals) *Enoxaparin/Lovenox 40 mg SQ daily (WT < 150 kg, CrCl > 30 mL/min) *Enoxaparin/Lovenox 30 mg SQ daily (WT < 150 kg, CrCl > 10-29 mL/min) *Enoxaparin/Lovenox 30 mg SQ BID (WT < 150 kg, CrCl > 30 mL/min) AND *Sequential Compression Device (SCD) Assessment and Plan Problem List: (1) Chest pain ICD Code: R07.9 - Chest pain, unspecified Status: Acute Plan: Patient has been admitted to the chest pain center. Serial EKGs and serial troponins have been ordered for ruling out ACS purposes. Serial troponins are flat. EKG reviewed showing NSR with HR 78, no presence of any arrhythmias. No ST changes to indicate any ischemia. Was given Aspirin 162 mg PO in ED. Status post IVF NS bolus in ED. At the time of assessment patient denies any further chest pain or discomfort. Admits to full resolution. Patient will undergo a cardiac treadmill stress test to rule out any further possibility of ischemia. Further hospitalization and treatment plan will depend on stress test results. Keep NPO for now. If negative, patient will be discharged and encouraged to follow up with her PCP in the outpatient setting. Patient is stable at this time and agreeable to the plan. 1022 Dr. Merritt has reviewed stress test results with no signs of ischemia. Chest pain and discomfort resolved. Will discharge home and encouraged to come back to ED if pain returns. f/u PCP upon discharge. Patient stable and agreeable to the plan. Problem Qualifiers (1) Chest pain: Qualified Codes: R07.9 - Chest pain, unspecified Cheri Madrid Feb 23, 2017 07:51
[2017-02-23 08:00] VITALS: BP 142/95; PULSE 78; RESP 18; TEMP 97.7; O2SAT 96
[2017-02-23] MEDS ORDERED: SODIUM CHLORIDE 0.9% FLUSH 10 ML FLUSH IV FLUSH SCH (09:00)
--- NOTE | 2017-02-23 10:21 | HHI.DCPOC ---
Discharge Care Plan Diagnosis: (1) Chest pain Your Health Problems Are: Chest Pain Goals to Promote Your Health * To prevent worsening of your condition and complications * To maintain your health at the optimal level Directions to Meet Your Goals Take your medications as prescribed Follow your dietary instruction Follow activity as directed Keep your appointments as scheduled Take your immunizations and boosters as scheduled If your symptoms worsen call your PCP, if no PCP go to Urgent Care Center or Emergency Room Smoking is Dangerous to Your Health. Avoid second hand smoke Call the 24-hour hour crisis hotline for domestic abuse at Cheri Madrid Feb 23, 2017 10:21
[2017-02-23 12:00] VITALS: BP 142/95; PULSE 78; RESP 18; TEMP 97.7; O2SAT 96
--- NOTE | 2017-02-23 15:57 | EKG ---
Date Performed: 02/22/2017 Time Performed: 22:15:47 PTAGE: 46 years EKG: Sinus rhythm VOLTAGE CRITERIA FOR LVH ABNORMAL ECG Since PREVIOUS TRACING , no significant change noted PREVIOUS TRACIN10/20/1997 10.31 DOCTOR: Amber Fierro Interpretating Date/Time 02/23/2017 15:56:42
--- NOTE | 2017-02-23 15:58 | EKG ---
Date Performed: 02/23/2017 Time Performed: 01:23:34 PTAGE: 46 years EKG: Sinus rhythm MODERATE VOLTAGE CRITERIA FOR LVH, CONSIDER NORMAL VARIANT BORDERLINE ECG Since PREVIOUS TRACING , no significant change noted PREVIOUS TRACIN02/22/2017 22.15 DOCTOR: Amber Fierro Interpretating Date/Time 02/23/2017 15:57:18
--- NOTE | 2017-02-23 15:58 | EKG ---
Date Performed: 02/23/2017 Time Performed: 04:18:37 PTAGE: 46 years EKG: Sinus rhythm LOW QRS VOLTAGE IN PRECORDIAL LEADS MODERATE VOLTAGE CRITERIA FOR LVH, CONSIDER NORMAL VARIANT BORDE RLINE ECG Since PREVIOUS TRACING , no significant change noted PREVIOUS TRACIN02/23/2017 01.23 DOCTOR: Amber Fierro Interpretating Date/Time 02/23/2017 15:57:37
--- NOTE | 2017-02-27 07:56 | TR ---
Date Performed: 02/23/2017 Time Performed: 09:32:04 DOCTOR: Nuvia Merritt DRUG LIST: CLINICAL HISTORY: REASON FOR TEST: Chest pain REASON FOR ENDING: OBSERVATION: CONCLUSION: Brice protocol performed test stopped secondary to reaching target heart rate and le g fatigue. No reproducible chest discomfort. Normal BP response. Good exercise response. Recovery caitlyn ck and unremarkable.Maximum ZY=860 Target HR Hgbhbydv=946.0% Maximum ZB=664/82 Total Exercise Time=6: 17; No ischemia COMMENTS:
== END 2017-02-23 12:48 | disposition home or self-care (01) ==
LOC: PHED 21:54 → PHEDA 23:57 → PH3B 02-23 00:46
PROVIDERS: ADMIT Hospitalist; ATTEND Hospitalist
DX: R07.9 Chest pain, unspecified (principal); R06.02 Shortness of breath; G89.29 Other chronic pain; M79.606 Pain in leg, unspecified; R94.31 Abnormal electrocardiogram [ECG] [EKG]
CPT/HCPCS: 71010; 71275; 80053; 82550; 83735; 83880; 84484; 85025; 85379; 85610; 85730; 93005; 93017; 96360; 99285; G0378; J7030; Q9967